=== PATIENT | male | born 1965 | race Caucasian/White ===

== ENCOUNTER 2017-07-10 14:24 | Inpatient (IN) | payer OTHER ==
[~2017-07-10] VITALS: Ht 190.5 cm; Wt 112.0 kg
[2017-07-10 14:33] VITALS: BP_SYST 153
[2017-07-10] MEDS ORDERED: fentaNYL CITRATE/PF 100 MCG/2 ML AMP IVP ONE (14:45)
[2017-07-10] MEDS ORDERED: ASPIRIN 81 MG TAB.CHEW PO ONE (14:45)
[2017-07-10 15:01] LABS: BASOPHILS % (AUTO) 0.5 % (0.0-2.0); EOSINOPHILS # (AUTO) 0.1 K/uL (0.0-0.4); EOSINOPHILS % (AUTO) 1.8 % (0.0-4.0); HEMATOCRIT 39.7 % (36-54); HEMOGLOBIN 13.4 g/dL (14.0-18.0); LYMPHOCYTES # (AUTO) 1.6 K/uL (1.0-5.5); LYMPHOCYTES % (AUTO) 25.7 % (20.5-51.5); MEAN CORPUSCULAR HEMOGLOBIN 30 pg (27-31); MEAN CORPUSCULAR HGB CONC 34 % (32-36); MEAN CORPUSCULAR VOLUME 90 fL (79.0-98.0); MONOCYTES # (AUTO) 0.3 K/uL (0.0-1.0); MONOCYTES % (AUTO) 5.3 % (1.7-9.3); NEUTROPHILS # (AUTO) 4.2 K/uL (1.8-7.7); NEUTROPHILS % (AUTO) 66.7 % (40.0-70.0); PLATELET COUNT (AUTO) 160 K/uL (130-430); RED BLOOD CELL COUNT(AUTO) 4.44 MIL/uL (4.2-6.2); RED CELL DISTRIBUTION WIDTH 13.7 % (9.0-15.0); WHITE BLOOD COUNT (AUTO) 6.2 K/uL (4.8-10.8)
[2017-07-10 15:03] LABS: CALCIUM 8.8 mg/dL (8.4-11.0); CREATININE 1.39 mg/dL (0.55-1.30); POTASSIUM 4.3 mmol/L (3.5-5.1); PROTHROMBIN TIME 10.4 SECS (9.5-12.5)
[2017-07-10 15:05] LABS: TOTAL BILIRUBIN 0.6 mg/dL (0.0-1.0)
[2017-07-10] MEDS ORDERED: NACL 0.9% 1,000 ML IV ONE (15:30)
[2017-07-10] MEDS ORDERED: INSULIN REGULAR, HUMAN 10 UNITS/0.1 ML INJ IVP ONE (15:45)
[2017-07-10] MEDS ORDERED: APIX5TAB PO (16:04)
[2017-07-10] MEDS ORDERED: LIP40 PO (16:04)
[2017-07-10] MEDS ORDERED: TEMA30CA5 PO (16:04)
[2017-07-10] MEDS ORDERED: INSU100V32 SUBCUT (16:04)
[2017-07-10] MEDS ORDERED: INSU100V9 SUBCUT (16:04)
[2017-07-10] MEDS ORDERED: MULT PO (16:04)
[2017-07-10] MEDS ORDERED: METF1000 PO (16:04)
[2017-07-10] MEDS ORDERED: ENOXAPARIN SODIUM 100 MG/ML SYRINGE SUBCUT ONE (16:15)
[2017-07-10] MEDS ORDERED: LEVO50TA77 PO (16:18)
[2017-07-10 16:49] VITALS: BP_SYST 145
[2017-07-10] MEDS ORDERED: DEXTROSE 50% JECT 50 ML DISP.SYRIN IVP PRN (17:00)
[2017-07-10] MEDS ORDERED: *HEPARIN PER PHARMACY XX ONE (17:00)
[2017-07-10] MEDS: INSULIN REGULAR, HUMAN 100 UNITS/ML, 10 ML VIAL (novoLIN R) SUBCUT PRN (17:59)
[2017-07-10] MEDS ORDERED: MORPHINE 4 MG/ML INJ. SYRINGE IVP PRN (18:00)
[2017-07-10] MEDS ORDERED: ACETAMINOPHEN 325 MG TABLET PO PRN (18:00)
[2017-07-10] MEDS ORDERED: HEPARIN SODIUM,PORCINE 2000 UNITS/0.4 ML BOLUS IVP PRN (19:00)
[2017-07-10] MEDS ORDERED: HEPARIN SODIUM,PORCINE 3000 UNITS/0.6 ML BOLUS IVP PRN (19:00)
[2017-07-10 20:00] VITALS: BP_SYST 129
[2017-07-10] MEDS ORDERED: INSULIN GLARGINE 100 UNITS/ML 10 ML VIAL SUBCUT SCH (21:00)
[2017-07-10] MEDS ORDERED: HEPARIN SODIUM, PORCINE 10,000 UNITS/ 10 ML VIAL IV ONE (21:15)
[2017-07-10] MEDS: HEPARIN 25,000 UNITS in 250 ML PREMIX IV PRN (21:54)
[2017-07-11] MEDS: MORPHINE 4 MG/ML INJ. SYRINGE IVP PRN ×6 (00:09→22:21)
[2017-07-11] MEDS: TEMAZEPAM 15 MG CAPSULE PO PRN ×2 (00:43→23:15)
[2017-07-11] MEDS: INSULIN REGULAR, HUMAN 100 UNITS/ML, 10 ML VIAL (novoLIN R) SUBCUT PRN ×5 (00:52→23:17)
[2017-07-11 00:56] VITALS: BP_SYST 121
[2017-07-11] MEDS: LEVOTHYROXINE SODIUM 0.05 MG TABLET PO SCH (06:22)
[2017-07-11 07:45] VITALS: BP_SYST 102
[2017-07-11] MEDS: HEPARIN 25,000 UNITS in 250 ML PREMIX IV PRN ×4 (07:49→19:00)
[2017-07-11] MEDS: ATORVASTATIN 20 MG TABLET PO SCH (09:19)
[2017-07-11 12:20] VITALS: BP_SYST 147
[2017-07-11 20:00] VITALS: BP_SYST 135
[2017-07-12 00:44] VITALS: BP_SYST 141
[2017-07-12] MEDS: MORPHINE 4 MG/ML INJ. SYRINGE IVP PRN ×4 (02:40→17:37)
[2017-07-12] MEDS: INSULIN REGULAR, HUMAN 100 UNITS/ML, 10 ML VIAL (novoLIN R) SUBCUT PRN ×3 (06:12→17:29)
[2017-07-12] MEDS: LEVOTHYROXINE SODIUM 0.05 MG TABLET PO SCH (06:47)
[2017-07-12 08:05] VITALS: BP_SYST 153
[2017-07-12] MEDS: ATORVASTATIN 20 MG TABLET PO SCH (08:08)
[2017-07-12] MEDS ORDERED: APIXABAN 2.5 MG TABLET PO ONE (09:45)
[2017-07-12 10:17] VITALS: BP_SYST 142
[2017-07-12 16:43] VITALS: BP_SYST 140
[2017-07-12] MEDS ORDERED: APIXABAN 2.5 MG TABLET PO SCH (21:00)
== END 2017-07-12 18:45 | disposition home or self-care (01) | DRG 300 ==
LOC: SED 14:24 → STU 16:17
PROVIDERS: ADMIT Internal Medicine Hospice and Palliative Medicine; ATTEND Internal Medicine Hospice and Palliative Medicine
DX: I82.402 Acute embolism and thrombosis of unspecified deep veins of left lower extremity (principal); D68.59 Other primary thrombophilia; R07.89 Other chest pain; I25.10 Atherosclerotic heart disease of native coronary artery without angina pectoris; E11.65 Type 2 diabetes mellitus with hyperglycemia; I10 Essential (primary) hypertension; E78.5 Hyperlipidemia, unspecified; E89.0 Postprocedural hypothyroidism; I25.2 Old myocardial infarction; Z85.850 Personal history of malignant neoplasm of thyroid; Z86.73 Personal history of transient ischemic attack (TIA), and cerebral infarction without residual deficits; Z98.61 Coronary angioplasty status; Z86.711 Personal history of pulmonary embolism; Z86.718 Personal history of other venous thrombosis and embolism; Z88.1 Allergy status to other antibiotic agents; Z79.899 Other long term (current) drug therapy
CPT/HCPCS: 36415; 71045; 80053; 82550-TC; 82962; 83880; 84484; 85025; 85379; 85610-TC; 85730-TC; 93005; 93306; 93971; 96361; 96374; 96375; 99291; J1644; J1650; J1815; J2270; J3010; J7030